=== PATIENT | female | born 1960 | race Caucasian/White ===

== ENCOUNTER 2016-07-23 12:14 | Emergency (ER) | payer MEDICAID ==
[~2016-07-23] VITALS: Wt 68.0 kg
[~2016-07-23 12:14] MED LIST: AMO500 PO; DOCU-144 PO; NITR-58 PO; ONDA4TAB35 PO; RANI75TA13 PO; TRAM50TA2 PO
[2016-07-23] MEDS ORDERED: IBUPROFEN 800 MG TAB PO ONE (15:30)
--- NOTE | 2016-07-23 15:42 | RADRPT ---
PROCEDURE: XR Chest. CLINICAL INDICATION: Chest pain. TECHNIQUE: Single frontal view of the chest was obtained COMPARISON: Chest x-ray 07/31/2014. FINDINGS: The soft tissues are normal. The bony elements are normal. The heart, left side aorta, cardiomedias tinal silhouette, pulmonary vasculature and hilar structures are normal. The lungs are clear. The co stophrenic angles are normal. There has been no change compared to the prior study. IMPRESSION: 1. Stable chest x-ray with no evidence of active cardiopulmonary disease. RPTAT:AAJJ Physician Jj Date Time Electronically viewed and signed by Physician Jj on 07/23/2016 15:42 ZEINAB/
[2016-07-23] MEDS ORDERED: ONDANSETRON (ODT) 4 MG TAB ODT STA (15:49)
[2016-07-23 16:16] LABS: BASOPHILS % 0.4 % (0.0-2.0); EOSINOPHILS # 0.1 10^3/ul (0.0-0.5); EOSINOPHILS % 1.8 % (0.0-7.0); HEMOGLOBIN 15.4 g/dl (12.0-16.0); LYMPHOCYTES # 2.3 10^3/ul (0.8-2.9); LYMPHOCYTES % 39.2 % (15.0-51.0); MEAN CORPUSCULAR HEMOGLOBIN 30.2 pg (29.0-33.0); MEAN CORPUSCULAR HGB CONC 34.2 g/dl (32.0-37.0); MEAN CORPUSCULAR VOLUME 88.4 fl (82.0-101.0); MEAN PLATELET VOLUME 8.6 fl (7.4-10.4); MONOCYTE # 0.3 10^3/ul (0.3-0.9); MONOCYTES % 5.5 % (0.0-11.0); NEUTROPHIL # 3.1 10^3/ul (1.6-7.5); NEUTROPHILS % 53.1 % (39.0-77.0); PLATELET COUNT 240 10^3/UL (140-440); RED BLOOD COUNT 5.09 10^6/ul (4.20-5.40); RED CELL DISTRIBUTION WIDTH 13.1 % (11.5-14.5); UNCORRECTED WBC 5.8 10^3/ul (4.8-10.8); WHITE BLOOD COUNT 5.8 10^3/ul (4.8-10.8)
[2016-07-23 16:17] LABS: CONDITION 1
[2016-07-23 16:36] LABS: CHLORIDE 107 mmol/L (97-110); POTASSIUM 4.2 mmol/L (3.5-5.1); SODIUM 144 mmol/L (135-144)
[2016-07-23 16:38] LABS: CREATININE 0.76 mg/dl (0.44-1.00)
[2016-07-23 16:39] LABS: ANION GAP 16 (8-16); BLOOD UREA NITROGEN 14 mg/dl (7-20); CALCIUM 9.2 mg/dl (8.4-10.2); CARBON DIOXIDE 25 mmol/L (21-31); GLUCOSE 90 mg/dl (70-220)
[2016-07-23 16:58] LABS: TROPONIN-I < 0.012 ng/ml (0.00-0.12)
[2016-07-23] MEDS ORDERED: IBUP-1542 PO (17:08)
--- NOTE | 2016-07-23 17:09 | ERD ---
ER Documentation Chief Complaint Date/Time DATE: 07/23/16 TIME: 17:09 Chief Complaint CHEST PAIN SINCE LAST NIGHT HPI Patient is a 56-year-old female with no medical problems who presents with chest pain and headache. She also has back pain. She has bilateral leg pain. She is here with her son who is being seen for arm pain. Upon review of old medical records she has had previous visits for various complaints. She has had no treatment as of yet. ROS All systems reviewed and are negative except as per history of present illness. Medications Home Meds Active Scripts Ibuprofen* (Motrin*) 600 Mg Tab, 600 MG PO Q6H Y for PAIN AND OR ELEVATED TEMP, #30 TAB Prov:ROMEL MCLAIN MD 07/23/16 Docusate Sodium* (Colace*) 100 Mg Capsule, 100 MG PO TID for 3 Days, #30 CAP Prov:SILVANO CURTIS 11/21/15 Amoxicillin* (Amoxicillin*) 500 Mg Cap, 500 MG PO TID for 10 Days, CAP Prov:MASOUD WRIGHT DO 05/04/15 Ondansetron Hcl* (Zofran* ODT) 4 mg -ODT Tab.disper, 4 MG PO Q6 Y for NAUSEA AND /OR VOMITING, #30 TAB Prov:ROMEL MCLAIN MD 02/27/15 Tramadol HCl (Tramadol HCl) 50 Mg Tab, 50 MG PO Q6 Y for PAIN, #20 TAB Prov:ROMEL MCLAIN MD 02/27/15 Nitrofurantoin Monohyd Macrocr* (Macrobid*) 100 Mg Capsr, 100 MG PO HS for 7 Days Prov:ROMEL MCLAIN MD 02/27/15 Reported Medications Ranitidine Hcl* (Zantac*) 75 Mg Tablet, 75 MG PO DAILY, TAB 02/27/15 Allergies Allergies: Coded Allergies: ciprofloxacin (Verified Allergy, Mild, Rash, 02/27/15) morphine (Verified Allergy, Mild, Rash, 02/27/15) PMhx/Soc History of Surgery: Yes (GALLBLADDER REMOVAL ) Anesthesia Reaction: No Hx Neurological Disorder: No Hx Respiratory Disorders: No Hx Cardiac Disorders: No Hx Psychiatric Problems: No Hx Miscellaneous Medical Probl: No Hx Alcohol Use: No Hx Substance Use: No Hx Tobacco Use: No FmHx Family History: No coronary disease Physical Exam Vitals Vital Signs Date Time Temp Pulse Resp B/P Pulse Ox O2 Delivery O2 Flow Rate FiO2 07/23/16 17:29 98.2 74 19 135/78 99 Room Air 07/23/16 12:18 98.0 71 18 147/79 99 Physical Exam Const: Mild distress secondary to pain Head: Atraumatic Eyes: Normal Conjunctiva ENT: Normal External Ears, Nose and Mouth. Neck: Full range of motion..~ No meningismus. Resp: Clear to auscultation bilaterally Cardio: Regular rate and rhythm, no murmurs Abd: Soft, non tender, non distended. Normal bowel sounds Skin: No petechiae or rashes Back: No midline or flank tenderness Ext: No cyanosis, or edema Neur: Awake and alert Psych: Normal Mood and Affect Result Diagram: 07/23/16 1557 07/23/16 1557 Results 24 hrs Laboratory Tests Test 07/23/16 15:57 Anion Gap 16 Basophils # 0.010^3/ul Basophils % 0.4% Blood Urea Nitrogen 14mg/dl Calcium Level 9.2mg/dl Carbon Dioxide Level 25mmol/L Chloride Level 107mmol/L Creatinine 0.76mg/dl Eosinophils # 0.110^3/ul Eosinophils % 1.8% Glucose Level 90mg/dl Hematocrit 45.0% Hemoglobin 15.4g/dl Lymphocytes # 2.310^3/ul Lymphocytes % 39.2% Mean Corpuscular Hemoglobin 30.2pg Mean Corpuscular Hemoglobin Concent 34.2g/dl Mean Corpuscular Volume 88.4fl Mean Platelet Volume 8.6fl Monocytes # 0.310^3/ul Monocytes % 5.5% Neutrophils # 3.110^3/ul Neutrophils % 53.1% Nucleated Red Blood Cells # 0.010^3/ul Nucleated Red Blood Cells % 0.0/100WBC Platelet Count 20469^3/UL Potassium Level 4.2mmol/L Red Blood Count 5.0910^6/ul Red Cell Distribution Width 13.1% Sodium Level 144mmol/L Troponin I < 0.012ng/ml White Blood Count 5.810^3/ul Current Medications Medications (Trade) Dose Ordered Sig/Omar Route PRN Reason Start Time Stop Time Status Last Admin Dose Admin Ibuprofen (Motrin) 800 mg ONCE ONCE PO 07/23/16 15:30 07/23/16 15:31 DC 2/18/17 16:02 Ondansetron HCl (Zofran Odt) 4 mg ONCE STAT ODT 07/23/16 15:49 07/23/16 15:50 DC 07/23/16 16:02 Procedures/[facility] EKG read by me: Rate/Rhythm: Regular rate and rhythm at a rate of 81 Intervals: Normal Impression: No evidence of ischemia or arrhythmia Chest x-ray negative per radiology. Patient is a 56-year-old female presents with multiple complaints including chest pain. EKG and chest x-ray were negative. Laboratory studies were normal including negative troponin. At this point I doubt acute coronary syndrome, pneumonia, pneumothorax, pulmonary embolism, or aortic dissection. The patient may have a viral illness that she did have an episode of vomiting in the ER as well. I believe outpatient management is appropriate but she will need to follow-up closely with a primary doctor within 24-48 hours. She can return sooner for any worsening symptoms. Departure Diagnosis: Primary Impression: Chest pain Chest pain type: unspecified Qualified Code: R07.9 - Chest pain, unspecified type Condition: Fair Patient Instructions: Chest Pain, Uncertain Cause [facility] Usted se lanier hecho un examen mdico de control que le indica que no est en prem condicin que requiera tratamiento urgente en el Departamento de Emergencia. Un estudio ms profundo y el tratamiento de coker condicin pueden esperar sin ningn riesgo hasta que usted sea atendida/o en el consultorio de coker mdico o prem cl yazmin. Es responsabilidad suya arreglar prem artie para el seguimiento del fady. MANEJO DE CONDICIONES NO URGENTES EN EL FUTURO 1) Si usted tiene un mdico de atencin primaria: Usted debera llamar a coker mdico de atencin primaria antes de venir al departamento de emergencia. Despus de las horas de consultorio, coker doctor o coker asociado/a est disponible por telfono. El mdico o enfermero de sierra en el servicio telefnico puede asesorarle por pili medio para atender el problema, o fady contrario se puede programar prem artie. 2) Si usted no tiene un mdico de atencin primaria: Llame al mdico o clnica de referencia que aparece abajo di las horas de consultorio para hacer prem artie para que le vean. CLINICAS: [facility] [phone] [facility] [phone] [facility] [phone] [facility] [facility] [phone] [id number] [facility]. [facility] [phone] [address] [facility] [phone] [address] Additional Instructions: Llame al doctor MAANA y betito prem ARTIE PARA DENTRO DE 1-2 ZULETA.Dgale a la secretaria que nosotros le instruimos hacer esta artie.Avise o llame si coker condicin se empeora antes de la artie. Regresa aqui si peor o no mejor. ROMEL MCLAIN MD Jul 23, 2016 17:09
[2016-07-23 17:29] VITALS: BP 135/78; PULSE 74; RESP 19; TEMP 98.2
== END 2016-07-23 17:30 | disposition home or self-care (01) ==
LOC: FTE 12:14
DX: R07.9 Chest pain, unspecified (principal)
CPT/HCPCS: 71010; 80048; 84484; 85025; 93005; Z7502; Z7610

== ENCOUNTER 2017-04-15 17:10 | Emergency (ER) | END 2017-04-15 20:20 | disposition home or self-care (01) | DX: N30.90 Cystitis, unspecified without hematuria (principal); R20.0 Anesthesia of skin; R07.9 Chest pain, unspecified; R40.2142 Coma scale, eyes open, spontaneous, at arrival to emergency department; R40.2252 Coma scale, best verbal response, oriented, at arrival to emergency department; R40.2362 Coma scale, best motor response, obeys commands, at arrival to emergency department | CPT/HCPCS: 36415; 71010; 80053; 81001; 83690; 84484; 85025; 93005; 96374; 96375; J1885; J2060; J7030; Z7502; Z7610 ==

== ENCOUNTER 2017-07-18 00:31 | Observation (INO) | END 2017-07-20 11:23 | disposition home or self-care (01) ==